=== PATIENT | female | born 2000 | race Asian ===

== ENCOUNTER 2021-01-23 02:14 | Inpatient (IN) | payer OTHER ==
[~2021-01-23] VITALS: Ht 160 cm; Wt 52.2 kg
[2021-01-23 02:14] VITALS: BP 123/87
--- NOTE | 2021-01-23 02:14 | NUR ---
PT BROUGHT TO BED 8 VIA [facility]
--- NOTE | 2021-01-23 02:14 | NUR ---
JASPAL FROM [facility], PT. IS A 20 Y/O FEMALE THAT CAME INTO ED WITH C/O OF ABDOMINAL PAIN. PER CARE UNIT, PT. HAS A HISTORY OF OVARIAN CYSTS AND PAIN IS IN THE RIGHT LOWER QUADRANT. PT. RATES PAIN AT 9/10 ON THE PAIN SCALE AND DESCRIBES IT AT SHARP PAIN THAT COMES AND GOES. PT. STATES SHE HAS TAKEN IBUPROFEN AND GAS X PRIOR TO ARRIVAL. PER CARE UNIT, PT. STATED THAT WHEN SHE WENT TO BATHROOM, SHE URINATED SOME BLOOD CLOTS. EN ROUTE, CARE UNIT STATES PT. HAD 1 EPISODE OF VOMIT (100ML). HX: OVARIAN CYSTS ALLERGIES: AMOXICILLIN
--- NOTE | 2021-01-23 02:55 | NUR ---
URINE SAMPLE AND WET MOUNT COLLECTED. WALKED TO LAB BY KENDALL WEN
[2021-01-23 03:28] LABS: APPEARANCE,URINE CLOUDY (CLEAR); BILIRUBIN,URINE NEGATIVE (NEGATIVE); BLOOD, URINE TRACE-I (NEGATIVE); COLOR,URINE YELLOW (YELLOW); LEUKOCYTE ESTERASE ,URINE NEGATIVE (NEGATIVE); NITRITE, URINE NEGATIVE (NEGATIVE); UGLUCOSE NEGATIVE (NEGATIVE)
[2021-01-23 03:33] LABS: RBC,URINE 0-5 /HPF (0-5); WBC,URINE 0-5 /HPF (0-5)
[2021-01-23] MEDS ORDERED: ONDANSETRON 4 MG/2 ML VIAL IVP ONE (03:40)
[2021-01-23] MEDS ORDERED: NACL 0.9% 1,000 ML IV ONE (03:40)
[2021-01-23] MEDS ORDERED: KETOROLAC 30 MG/ML VIAL IVP ONE (03:45)
[2021-01-23 03:49] LABS: BASOPHILS % (AUTO) 0.2 % (0.0-2.0); EOSINOPHILS # (AUTO) 0.1 K/uL (0-0.4); EOSINOPHILS % (AUTO) 0.5 % (0.0-4.0); HEMATOCRIT 38.8 % (36-48); HEMOGLOBIN 12.9 g/dL (12.0-16.0); LYMPHOCYTES # (AUTO) 1.7 K/uL (2.5-16.5); LYMPHOCYTES % (AUTO) 9.8 % (20.5-51.1); MEAN CORPUSCULAR HEMOGLOBIN 33 pg (27-31); MEAN CORPUSCULAR HGB CONC 33 g/dL (33-37); MONOCYTES # (AUTO) 0.7 K/uL (0.8-1.0); NEUTROPHILS % (AUTO) 85.5 % (42.2-75.2); PLATELET COUNT (AUTO) 312 K/uL (140-450); RED BLOOD CELL COUNT(AUTO) 3.92 MIL/uL (4.20-5.40); RED CELL DISTRIBUTION WIDTH 13.6 % (11.6-13.7); WHITE BLOOD COUNT (AUTO) 17.6 K/uL (4.5-11.0)
[2021-01-23 04:05] LABS: BARBITURATE, URINE NEGATIVE ng/ml (NEG <=200); BENZODIAZEPINE, URINE NEGATIVE ng/mL (NEG <=200); CANNABINOID, URINE NEGATIVE ng/mL (NEG <=50); COCAINE, URINE NEGATIVE ng/mL (NEG <=300); OPIATE, URINE NEGATIVE ng/mL (NEG <=2000); PHENCYCLIDINE SCREEN,URINE NEGATIVE ng/mL (NEG <=25)
[2021-01-23 04:09] LABS: ALBUMIN 3.8 g/dL (3.4-5.0); ANION GAP 13.7 (8-16); CREATININE 0.7 mg/dL (0.6-1.3); POTASSIUM 3.7 mmol/L (3.5-5.1); TOTAL BILIRUBIN 0.2 mg/dL (0.0-1.0)
--- NOTE | 2021-01-23 05:29 | NUR ---
CT AT BEDSIDE
--- NOTE | 2021-01-23 05:45 | NUR ---
PT. STATES RELIEF FROM PAIN, VOICES NO COMPLAINTS AT THIS TIME. PT. SEEN SITTING CROSS-LEGGED ON BED WITH PHONE IN HAND
--- NOTE | 2021-01-23 07:13 | NUR ---
Report and continuation of care received from DAVID Garcia.
--- NOTE | 2021-01-23 07:13 | NUR ---
REPORT GIVEN TO DAVID TUCKER. TRANSFER OF CARE AT THIS TIME.
--- NOTE | 2021-01-23 07:37 | NUR ---
Patient resting in position of comfort with alarm security or surveillance monitor in place. Pain 4/10, denies nausea. All pt needs met. Four States provided per request. Bed locked in lowest position, side rails x 1.
--- NOTE | 2021-01-23 08:35 | NUR ---
Patient asleep in low-fowlers position with IVF and compliance monitor in place. VSS; respirations even/unlabored. Bed locked in lowest position, side rails x 1, call light in reach.
[2021-01-23] MEDS ORDERED: POTASSIUM CHLORIDE 10 MEQ TABER PO PRN (09:20)
[2021-01-23] MEDS ORDERED: HYDROcodone/APAP 5/325 MG 1 TAB TAB PO PRN (09:20)
[2021-01-23] MEDS ORDERED: MORPHINE SULFATE 2 MG/ML SYR IVP PRN (09:20)
[2021-01-23] MEDS ORDERED: DOCUSATE SODIUM 100 MG GELCAP PO PRN (09:20)
[2021-01-23] MEDS ORDERED: ONDANSETRON 4 MG/2 ML VIAL IM/IVP PRN (09:20)
[2021-01-23] MEDS ORDERED: MAGNESIUM OXIDE 400 MG TAB PO PRN (09:20)
[2021-01-23] MEDS ORDERED: ACETAMINOPHEN 325 MG TAB PO PRN (09:20)
[2021-01-23] MEDS ORDERED: SODIUM PHOS / POTASSIUM PHOS 1 PKT PDR PO PRN (09:20)
--- NOTE | 2021-01-23 09:30 | NUR ---
Pt with both eyes open sitting upright on phone. VSS; respirations even/unlabored. Bed locked in lowest position, side rails x 1.
[2021-01-23] MEDS: NACL 0.9% 1,000 ML IV SCH (09:34)
[2021-01-23 09:38] LABS: PHOSPHORUS 3.1 mg/dL (2.5-4.9)
--- NOTE | 2021-01-23 10:47 | NUR ---
SUASN WIGGINS - FATHERS COUSIN FOR UPDATES [phone]
--- NOTE | 2021-01-23 11:10 | NUR ---
Trego provided per request.
--- NOTE | 2021-01-23 11:35 | NUR ---
Covid douglas swab collected, handed to Jose, CPT
--- NOTE | 2021-01-23 12:29 | NUR ---
Lunch mealtray provided at bedside. Patient completing meal at this time.
--- NOTE | 2021-01-23 12:45 | NUR ---
Pt completed 20% of meal. Juice provided per request.
--- NOTE | 2021-01-23 15:29 | NUR ---
Dr. Snell is evaluating patient at bedside.
[2021-01-23] MEDS ORDERED: FLUO10CA21 PO (16:11)
[2021-01-23] MEDS ORDERED: DEXM5TAB PO (16:11)
[2021-01-23] MEDS ORDERED: BUPR300T70 PO (16:11)
[2021-01-23] MEDS ORDERED: IBUP-2213 PO (16:11)
[2021-01-23] MEDS ORDERED: SPIR100T46 PO (16:15)
--- NOTE | 2021-01-23 16:28 | NUR ---
Pt resting in semi-fowlers position on telephone + headphones on. cafeteria monitor and IVF in place. VSS; respirations even/unlabored. Bed locked in lowest position, side rails x 1, call light in reach.
--- NOTE | 2021-01-23 19:25 | NUR ---
Report and transfer of care given to DAVID Langston.
--- NOTE | 2021-01-23 19:48 | NUR ---
PT IS RESTING. STATED SHE IS JUST VERY TIRED. VSS. PT IS IN STABLE CONDITION. UPDATED PT ON TRANSFER TO FLOOR. ALL NEEDS MET AT THIS TIME. SIDE RAILS X2. BED LOCKED IN LOWEST POSITION.
--- NOTE | 2021-01-23 20:00 | NUR ---
REPORT GIVEN TO DAVID BARAHONA. [id number].
--- NOTE | 2021-01-23 20:13 | NUR ---
Patient will be admitted to care of . Admited to Med/Surg. Will go to [id number]. Belongings list completed. Report to DAVID BARAHONA.
--- NOTE | 2021-01-23 20:20 | NUR ---
ADMITTED A FEMALE PATIENT FROM ER VIA WHEELCHAIR AAOX4. CC: ABDOMINAL PAIN, BLOOD CLOTS IN THE URINE. DX: RIGHT OVARIAN CYST. NO S/S OF RESPIRATORY DISTRESS. RESPIRATION EVEN UNLABORED. IV ON LAC 20 G . LUNGS CLEAR ON AUSCULTATION. BOWEL SOUNDS PRESENT IN ALL 4 QUADRANT. ABDOMEN SOFT NON TENDER. SKIN IS INTACT. MRSA SCREENING DONE. ORIENTED TO ROOM, CALL LIGHT AND STAFF. ALL SAFETY PRECAUTIONS ARE IN PLACE. WILL CONTINUE TO MONITOR.
[2021-01-24] VITALS: BP 111/67
[2021-01-24] MEDS ORDERED: LEVOFLOXACIN 250 MG/D5 PREMIX 50 ML IV SCH (00:45)
--- NOTE | 2021-01-24 00:58 | NUR ---
LEVAQUIN 250 MG IVPB AT 50 ML/HR GIVEN ON THE LAC.
[2021-01-24 06:01] LABS: BASOPHILS % (AUTO) 0.3 % (0.0-2.0); EOSINOPHILS # (AUTO) 0.2 K/uL (0-0.4); EOSINOPHILS % (AUTO) 1.7 % (0.0-4.0); HEMATOCRIT 37.5 % (36-48); HEMOGLOBIN 12.9 g/dL (12.0-16.0); LYMPHOCYTES # (AUTO) 3.2 K/uL (2.5-16.5); LYMPHOCYTES % (AUTO) 34.2 % (20.5-51.1); MEAN CORPUSCULAR HEMOGLOBIN 34 pg (27-31); MEAN CORPUSCULAR HGB CONC 34 g/dL (33-37); MEAN CORPUSCULAR VOLUME 99.5 fL (80-94); MONOCYTES # (AUTO) 0.7 K/uL (0.8-1.0); MONOCYTES % (AUTO) 7.8 % (1.7-9.3); NEUTROPHILS # (AUTO) 5.2 K/uL (1.8-7.7); PLATELET COUNT (AUTO) 302 K/uL (140-450); RED BLOOD CELL COUNT(AUTO) 3.77 MIL/uL (4.20-5.40); RED CELL DISTRIBUTION WIDTH 13.5 % (11.6-13.7); WHITE BLOOD COUNT (AUTO) 9.3 K/uL (4.5-11.0)
[2021-01-24 06:20] LABS: ANION GAP 11.1 (8-16); CARBON DIOXIDE 27.5 mmol/L (21-32); CREATININE 0.7 mg/dL (0.6-1.3); POTASSIUM 3.6 mmol/L (3.5-5.1)
--- NOTE | 2021-01-24 07:30 | NUR ---
ENDORSED TO AM NURSE FOR CONTINUITY OF CARE. PATIENT IS STABLE.
--- NOTE | 2021-01-24 07:30 | NUR ---
RECEIVED PATIENT FROM VINYL CUTTER NURSE FOR CONTINUITY OF CARE. PATIENT IS RESTING IN BED, A/A/O X4. RESPIRATORY EVEN AND UNLABORED, ON ROOM AIR. NO SIGN OF DISTRESS NOTED. SKIN WARM, DRY, NON DIAPHORETIC. IV ON LEFT AC 20G, INTACT AND PATENT, IS INFUSING FLUID ORDER. PATIENT DENIES ANY PAIN OR DISCOMFORT. ABLE TO MAKE NEED KNOWN. PLAN OF CARE DISCUSSED. PATIENT VERBALIZED UNDERSTANDING. CALL LIGHT WITHIN REACH. WILL CONTINUE TO MONITOR.
--- NOTE | 2021-01-24 07:36 | NUR ---
PATIENT HAS BEEN SCREENED AND CATEGORIZED LOW NUTRITION RISK. PATIENT WILL BE SEEN WITHIN 7 DAYS OF ADMISSION. 01/29/[address]
[2021-01-24 08:00] VITALS: BP 96/58
[2021-01-24] MEDS ORDERED: FLUoxetine 10 MG CAP PO SCH (09:00)
[2021-01-24] MEDS ORDERED: DEXMETHYLPHENIDATE HCL PO SCH (09:00)
[2021-01-24] MEDS ORDERED: SPIRONOLACTONE 50 MG TAB PO SCH (09:00)
[2021-01-24] MEDS ORDERED: buPROPion 150 MG TABER PO SCH (09:00)
[2021-01-24] MEDS: NACL 0.9% 1,000 ML IV SCH (09:20)
--- NOTE | 2021-01-24 09:32 | NUR ---
SCHEDULE MEDICATIONS GIVEN WITH EDUCATION. PATIENT VERBALIZED UNDERSTANDING. NO SIGN OF DISTRESS NOTED. CALL LIGHT WITHIN REACH. WILL CONTINUE TO MONITOR.
--- NOTE | 2021-01-24 11:30 | NUR ---
PATIENT IS AWAKE, RESTING IN BED, NO SIGN OF DISTRESS NOTED. CALL LIGHT WITHIN REACH. WILL CONTINUE TO MONITOR.
--- NOTE | 2021-01-24 13:00 | NUR ---
PATIENT IS RESTING IN BED, NO SIGN OF DISTRESS NOTED. PATIENT'S FRIEND AT BEDSIDE. CALL LIGHT WITHIN REACH. WILL CONTINUE TO MONITOR.
[2021-01-24] MEDS ORDERED: NAPR-54 PO (14:54)
--- NOTE | 2021-01-24 15:10 | NUR ---
DISCHARGE EDUCATION GIVEN, PATIENT VERBALIZED UNDERSTANDING. RESPIRATORY EVEN AND UNLABORED. IV REMOVED, BLEEDING CONTROL. ARM BAND ARE REMOVED. PATIENT AMBULATES TO LOBBY WITHOUT ANY ASSISTANCE.
--- NOTE | 2021-01-24 15:23 | NUR ---
DC [age] YRS OLD FEMALE PATIENT WAS ADMITTED FROM HOME WITH A DX OF RT OVARIAN CYST HEMORRHAGIC. PATIENT HAS A HX OF OVARIAN CYCST ,ADHD,ANXIETY. ADMINISTERED IVF IV ABX ROCEPHIN AND CONTINUED HOME MEDS CONSULTED WITH SUPERVISOR WELDING EQUIPMENT REPAIRER. DC PLAN TO GO HOME WHEN STABLE. CM TO FOLLOW
[2021-01-26] MEDS ORDERED: ACET-8386 PO (14:23)
== END 2021-01-24 15:30 | disposition home or self-care (01) | DRG 761 ==
LOC: MED 02:14 → MMU 09:24 → MTU 09:24 → MMU 17:49
PROVIDERS: ADMIT Hospitalist; ATTEND Hospitalist
DX: N83.201 Unspecified ovarian cyst, right side (principal); N94.6 Dysmenorrhea, unspecified; N92.4 Excessive bleeding in the premenopausal period; F90.9 Attention-deficit hyperactivity disorder, unspecified type; F41.9 Anxiety disorder, unspecified; Z20.822 Contact with and (suspected) exposure to COVID-19; Z88.1 Allergy status to other antibiotic agents; Z79.1 Long term (current) use of non-steroidal anti-inflammatories (NSAID); Z79.899 Other long term (current) drug therapy
CPT/HCPCS: 36415; 76856; 80048; 80053; 80305; 81001; 83735; 84100; 85025; 87081; 87086; 87210; 96361; 96374; 96375; 99285; J1885; J1956; J2405; Q0092